=== PATIENT | male | born 1980 | race Caucasian/White ===

== ENCOUNTER 2019-10-11 20:35 | Emergency (ER) | payer BC ==
[~2019-10-11] VITALS: Ht 180.3 cm; Wt 106.8 kg
[2019-10-11] MEDS ORDERED: CEPHALEXIN500 M1 PO (21:26)
[2019-10-11 21:48] VITALS: BP 170/110
== END 2019-10-11 21:48 | disposition home or self-care (01) ==
LOC: ED 20:35
DX: S60.552A Superficial foreign body of left hand, initial encounter (principal); Z23 Encounter for immunization; W45.8XXA Other foreign body or object entering through skin, initial encounter
CPT/HCPCS: 90715